=== PATIENT | female | born 1990 | race Caucasian/White ===

== ENCOUNTER 2022-04-12 12:12 | Observation (INO) | payer MEDICAID ==
[~2022-04-12] VITALS: Ht 163 cm; Wt 80.3 kg
[2022-04-12] MEDS ORDERED: PNV1TABL5 PO (12:56)
[2022-04-12 13:31] VITALS: BP 88/52
== END 2022-04-12 18:00 | disposition home or self-care (01) ==
LOC: MLD 12:12
PROVIDERS: ADMIT Obstetrics & Gynecology; ATTEND Obstetrics & Gynecology
DX: O36.8130 Decreased fetal movements, third trimester, not applicable or unspecified (principal); Z20.822 Contact with and (suspected) exposure to COVID-19; Z3A.37 37 weeks gestation of pregnancy
CPT/HCPCS: 59025; 76819; 81000; 87426; G0378; Q0092

== ENCOUNTER 2022-08-29 08:03 | Emergency (ER) | payer MEDICAID ==
[~2022-08-29] VITALS: Ht 152.4 cm; Wt 74.4 kg
[~2022-08-29 08:03] MED LIST: PNV1TABL5 PO
[2022-08-29 08:17] VITALS: BP 132/65
--- NOTE | 2022-08-29 08:45 | NUR ---
31F presents to ED with c/o vaginal bleeding since last night. Pt reports noting light pink discharge last night, states discharge is now a darker red with a dark, clot like, formations. Pt reports taking a test a week ago that resulted positive. Pt denies any pains, fevers, chills, vomiting or diarrhea. Pt reports feeling nausea daily but denies upon assessment.
[2022-08-29 09:08] LABS: BASOPHILS % (AUTO) 0.2 % (0.0-2.0); EOSINOPHILS # (AUTO) 0.2 K/uL (0-0.4); EOSINOPHILS % (AUTO) 2.2 % (0.0-4.0); HEMATOCRIT 38.7 % (36-48); HEMOGLOBIN 12.9 g/dL (12.0-16.0); LYMPHOCYTES # (AUTO) 2.1 K/uL (2.5-16.5); LYMPHOCYTES % (AUTO) 28.7 % (20.5-51.1); MEAN CORPUSCULAR HEMOGLOBIN 31 pg (27-31); MEAN CORPUSCULAR HGB CONC 33 g/dL (33-37); MEAN CORPUSCULAR VOLUME 91.4 fL (80-94); MONOCYTES # (AUTO) 0.3 K/uL (0.8-1.0); MONOCYTES % (AUTO) 4.5 % (1.7-9.3); NEUTROPHILS # (AUTO) 4.6 K/uL (1.8-7.7); NEUTROPHILS % (AUTO) 64.4 % (42.2-75.2); PLATELET COUNT (AUTO) 261 K/uL (140-450); RED BLOOD CELL COUNT(AUTO) 4.24 MIL/uL (4.20-5.40); WHITE BLOOD COUNT (AUTO) 7.2 K/uL (4.8-10.8)
[2022-08-29 10:04] LABS: APPEARANCE,URINE HAZY (CLEAR); BILIRUBIN,URINE NEGATIVE (NEGATIVE); BLOOD, URINE 3+ (NEGATIVE); COLOR,URINE ORANGE (YELLOW); LEUKOCYTE ESTERASE ,URINE 1+ (NEGATIVE); NITRITE, URINE NEGATIVE (NEGATIVE); UGLUCOSE NEGATIVE (NEGATIVE)
[2022-08-29 10:15] LABS: RBC,URINE 11-20 (MOD) /HPF (0-5)
[2022-08-29 10:16] LABS: WBC,URINE 20-60 /HPF (0-5)
[2022-08-29 10:17] LABS: URINE AMORPHOUS URATE 1+ /HPF (None Seen)
[2022-08-29] MEDS ORDERED: CEPH-588 PO (10:30)
[2022-08-29 10:38] VITALS: BP 95/63
== END 2022-08-29 10:38 | disposition home or self-care (01) ==
LOC: MED 08:03
DX: O03.9 Complete or unspecified spontaneous abortion without complication (principal); Z88.1 Allergy status to other antibiotic agents; Z88.2 Allergy status to sulfonamides; Z79.899 Other long term (current) drug therapy
CPT/HCPCS: 36415; 76817; 81001; 81025; 84702; 85025; 86900; 86901; 87086; 99284; Q0092

== ENCOUNTER 2022-09-15 22:57 | Emergency (ER) | payer MEDICAID ==
[~2022-09-15] VITALS: Ht 165.1 cm; Wt 73.5 kg
[~2022-09-15 22:57] MED LIST changes: +CEPH-588 PO
[2022-09-15 23:20] VITALS: BP 108/53
--- NOTE | 2022-09-15 23:21 | NUR ---
Patient taken to bed 11.
--- NOTE | 2022-09-15 23:22 | NUR ---
PT TAKEN TO BED 11
--- NOTE | 2022-09-16 00:10 | NUR ---
ER physician at bedside assessing patient.
[2022-09-16] MEDS ORDERED: KETOROLAC 30 MG/ML VIAL IM ONE (00:45)
[2022-09-16] MEDS ORDERED: NAPR-54 PO (01:48)
[2022-09-16 02:03] VITALS: BP 100/68
--- NOTE | 2022-09-16 02:17 | NUR ---
Patient discharged with v/s stable. Written and verbal after care instructions given and explained. Patient verbalized understanding. Pt discharged with new orders for naproxen. Ambulatory with steady gait. All questions addressed prior to discharge. Advised to follow up with PMD.
== END 2022-09-16 02:17 | disposition home or self-care (01) ==
LOC: MED 22:57
DX: R07.89 Other chest pain (principal); Z79.899 Other long term (current) drug therapy; Z88.2 Allergy status to sulfonamides; Z88.1 Allergy status to other antibiotic agents
CPT/HCPCS: 71045; 96372; 99283; J1885; Q0092

== ENCOUNTER 2023-11-10 14:57 | Inpatient (IN) | payer MEDICAID, OTHER ==
[~2023-11-10] VITALS: Ht 163 cm; Wt 83.5 kg
[~2023-11-10 14:57] MED LIST changes: +NAPR-54 PO
[2023-11-10] MEDS ORDERED: LACTATED RINGERS 500 ML IV SCH (15:40)
[2023-11-10] MEDS ORDERED: CARBOPROST 250 MCG/ML AMP IM PRN (15:40)
[2023-11-10] MEDS ORDERED: METHYLERGONOVINE 0.2 MG/ML AMP IM PRN (15:40)
[2023-11-10] MEDS: LACTATED RINGERS 1,000 ML IV SCH (16:03)
[2023-11-10] MEDS ORDERED: PRETAB PO (16:35)
[2023-11-10 16:46] LABS: BASOPHILS % (AUTO) 0.5 % (0.0-2.0); EOSINOPHILS # (AUTO) 0.2 K/uL (0-0.4); EOSINOPHILS % (AUTO) 1.9 % (0.0-4.0); HEMATOCRIT 28.2 % (36-48); HEMOGLOBIN 9.6 g/dL (12.0-16.0); LYMPHOCYTES # (AUTO) 1.5 K/uL (2.5-16.5); LYMPHOCYTES % (AUTO) 16.2 % (20.5-51.1); MEAN CORPUSCULAR HEMOGLOBIN 28 pg (27-31); MEAN CORPUSCULAR HGB CONC 34 g/dL (33-37); MEAN CORPUSCULAR VOLUME 81.8 fL (80-94); MONOCYTES # (AUTO) 0.4 K/uL (0.8-1.0); MONOCYTES % (AUTO) 4.7 % (1.7-9.3); NEUTROPHILS % (AUTO) 76.7 % (42.2-75.2); PLATELET COUNT (AUTO) 213 K/uL (140-450); RED BLOOD CELL COUNT(AUTO) 3.44 MIL/uL (4.20-5.40); RED CELL DISTRIBUTION WIDTH 14.1 % (11.6-13.7); WHITE BLOOD COUNT (AUTO) 9.1 K/uL (4.8-10.8)
[2023-11-10 16:56] LABS: APPEARANCE,URINE CLEAR (CLEAR); BILIRUBIN,URINE NEGATIVE (NEGATIVE); BLOOD, URINE NEGATIVE (NEGATIVE); COLOR,URINE YELLOW (YELLOW); LEUKOCYTE ESTERASE ,URINE TRACE (NEGATIVE); NITRITE, URINE NEGATIVE (NEGATIVE); PROTEIN,URINE NEGATIVE (NEGATIVE); UGLUCOSE NEGATIVE (NEGATIVE); UROBILINOGEN,URINE 0.2 EU/dL (0.2 - 1)
[2023-11-10 17:06] LABS: BACTERIA,URINE FEW /HPF (None Seen); RBC,URINE 0-5 /HPF (0-5); SQUAMOUS EPITHELIAL CELL,UR 0-3 (FEW) /LPF (0-3 (FEW)); WBC,URINE 0-5 /HPF (0-5)
[2023-11-10 17:14] LABS: INR 0.88 (0.8-1.2); PARTIAL THROMBOPLASTIN TIME 25.1 secs (22-35.6); PROTHROMBIN TIME 9.3 secs (10.8-13.4)
[2023-11-10 17:22] LABS: ALBUMIN 2.4 g/dL (3.4-5.0); ANION GAP 9.9 (8-16); CALCIUM 8.7 mg/dL (8.5-10.1); CREATININE 0.5 mg/dL (0.6-1.3); POTASSIUM 3.9 mmol/L (3.5-5.1); TOTAL BILIRUBIN 0.4 mg/dL (0.0-1.0); TOTAL PROTEIN, SERUM 7.7 g/dL (6.4-8.2)
[2023-11-11] MEDS ORDERED: OXYTOCIN/0.9 % SODIUM CHLORIDE 500 ML IV SCH (01:05)
[2023-11-11] MEDS ORDERED: MORPHINE SULFATE 10 MG/ML VIAL IVP PRN (06:45)
[2023-11-11] MEDS ORDERED: ONDANSETRON 4 MG/2 ML VIAL IVP PRN (06:45)
== END 2023-11-11 08:45 | disposition home or self-care (01) | DRG 566 ==
LOC: MLD 14:57 → OBSVTOIN 15:39
PROVIDERS: ADMIT Obstetrics & Gynecology; ATTEND Obstetrics & Gynecology
DX: O47.1 False labor at or after 37 completed weeks of gestation (principal); Z20.822 Contact with and (suspected) exposure to COVID-19; Z3A.38 38 weeks gestation of pregnancy
CPT/HCPCS: 36415; 76805; 76819; 80053; 81001; 85025; 85610; 85730; 86592; 86886; 86900; 86901; Q0092

== ENCOUNTER 2023-11-15 20:01 | Inpatient (IN) | payer OTHER ==
[~2023-11-15] VITALS: Ht 163 cm; Wt 83.5 kg
[~2023-11-15 20:01] MED LIST changes: -CEPH-588 PO; -NAPR-54 PO; -PNV1TABL5 PO; +PRETAB PO
[2023-11-15 20:22] VITALS: BP 113/56; PULSE 90; RESP 18; TEMP 99.2
[2023-11-15] MEDS ORDERED: LACTATED RINGERS 500 ML IV ONE (20:30)
[2023-11-15] MEDS ORDERED: METHYLERGONOVINE 0.2 MG/ML AMP IM PRN (20:30)
[2023-11-15 20:51] LABS: BASOPHILS % (AUTO) 0.4 % (0.0-2.0); EOSINOPHILS # (AUTO) 0.2 K/uL (0-0.4); EOSINOPHILS % (AUTO) 1.9 % (0.0-4.0); HEMATOCRIT 29.1 % (36-48); HEMOGLOBIN 9.6 g/dL (12.0-16.0); LYMPHOCYTES # (AUTO) 1.5 K/uL (2.5-16.5); LYMPHOCYTES % (AUTO) 15.1 % (20.5-51.1); MEAN CORPUSCULAR HEMOGLOBIN 27 pg (27-31); MEAN CORPUSCULAR HGB CONC 33 g/dL (33-37); MEAN CORPUSCULAR VOLUME 82.5 fL (80-94); MONOCYTES # (AUTO) 0.4 K/uL (0.8-1.0); MONOCYTES % (AUTO) 4.5 % (1.7-9.3); NEUTROPHILS # (AUTO) 7.7 K/uL (1.8-7.7); NEUTROPHILS % (AUTO) 78.1 % (42.2-75.2); PLATELET COUNT (AUTO) 208 K/uL (140-450); RED BLOOD CELL COUNT(AUTO) 3.53 MIL/uL (4.20-5.40); RED CELL DISTRIBUTION WIDTH 14.6 % (11.6-13.7); WHITE BLOOD COUNT (AUTO) 9.9 K/uL (4.8-10.8)
[2023-11-15 21:03] LABS: APPEARANCE,URINE CLEAR (CLEAR); BILIRUBIN,URINE NEGATIVE (NEGATIVE); BLOOD, URINE TRACE-I (NEGATIVE); COLOR,URINE YELLOW (YELLOW); LEUKOCYTE ESTERASE ,URINE TRACE (NEGATIVE); NITRITE, URINE NEGATIVE (NEGATIVE); PH,URINE 6.5 (5.0-9.0); PROTEIN,URINE NEGATIVE (NEGATIVE); UGLUCOSE NEGATIVE (NEGATIVE); UROBILINOGEN,URINE 0.2 EU/dL (0.2 - 1)
[2023-11-15 21:05] LABS: RBC,URINE 0-5 /HPF (0-5); WBC,URINE 0-5 /HPF (0-5)
[2023-11-15 21:06] LABS: BACTERIA,URINE 0-2 /HPF (None Seen); MUCUS,URINE None Seen /LPF (None Seen); SQUAMOUS EPITHELIAL CELL,UR 0-3 (FEW) /LPF (0-3 (FEW))
[2023-11-15 21:11] LABS: ALBUMIN 2.5 g/dL (3.4-5.0); ANION GAP 14.3 (8-16); CALCIUM 8.8 mg/dL (8.5-10.1); CREATININE 0.6 mg/dL (0.6-1.3); POTASSIUM 4.3 mmol/L (3.5-5.1); TOTAL BILIRUBIN 0.4 mg/dL (0.0-1.0)
[2023-11-15] MEDS: LACTATED RINGERS 1,000 ML IV SCH (21:42)
[2023-11-15] MEDS ORDERED: ROPIVACAINE 0.2%/NS PREMIX 200 ML EPI ONE (22:47)
[2023-11-15] MEDS: OXYTOCIN/0.9 % SODIUM CHLORIDE 500 ML IV ONE (23:20)
[2023-11-15] MEDS ORDERED: OXYTOCIN/0.9 % SODIUM CHLORIDE 500 ML IV SCH (23:35)
[2023-11-16] MEDS ORDERED: METHYLERGONOVINE 0.2 MG TAB PO PRN (01:50)
[2023-11-16] MEDS ORDERED: MAGNESIUM (01:50)
[2023-11-16] MEDS ORDERED: IBUPROFEN 800 MG TAB PO PRN ×3 (01:50→09:33)
[2023-11-16] MEDS ORDERED: OXYTOCIN 10 UNITS/ML VIAL IM PRN (01:50)
[2023-11-16] MEDS ORDERED: BENZOCAINE/MENTHOL 20%-0.5% 60 GM CAN TP PRN (01:50)
[2023-11-16] MEDS ORDERED: DOCU-474 PO (01:50)
[2023-11-16] MEDS ORDERED: METHYLERGONOVINE 0.2 MG/ML AMP IM PRN (01:50)
[2023-11-16] MEDS ORDERED: bisacodyL 10 MG SUPP RC PRN (01:55)
[2023-11-16 05:11] LABS: HEMATOCRIT 25.4 % (36-48); HEMOGLOBIN 8.5 g/dL (12.0-16.0)
[2023-11-16] MEDS: IBUPROFEN 800 MG TAB PO PRN (06:26)
[2023-11-16] MEDS: oxyCODONE/APAP 5/325 MG 1 TAB TAB PO PRN (09:46)
[2023-11-16] MEDS ORDERED: MEDS-TO-BEDS MC SCH (21:00)
[2023-11-17] MEDS: oxyCODONE/APAP 5/325 MG 1 TAB TAB PO PRN (05:07)
[2023-11-17] MEDS ORDERED: IBUP-2217 PO (08:18)
[2023-11-17] MEDS: DOCUSATE SOD/SENNA 50/8.6 MG 1 TAB PO PRN (08:54)
== END 2023-11-17 17:15 | disposition home or self-care (01) | DRG 560 ==
LOC: MLD 20:01 → MFCC 11-16 03:40
PROVIDERS: ADMIT Obstetrics & Gynecology; ATTEND Obstetrics & Gynecology
PROC: 10E0XZZ Delivery of Products of Conception, External Approach (ICD-10-PCS; principal; 2023-11-16)
PROC: 0KQM0ZZ Repair Perineum Muscle, Open Approach (ICD-10-PCS; 2023-11-16)
PROC: 3E0R3BZ Introduction of Anesthetic Agent into Spinal Canal, Percutaneous Approach (ICD-10-PCS; 2023-11-16)
PROC: 00HU33Z Insertion of Infusion Device into Spinal Canal, Percutaneous Approach (ICD-10-PCS; 2023-11-16)
DX: O70.1 Second degree perineal laceration during delivery (principal); Z37.0 Single live birth; R71.0 Precipitous drop in hematocrit; Z20.822 Contact with and (suspected) exposure to COVID-19; Z3A.39 39 weeks gestation of pregnancy
CPT/HCPCS: 36415; 59409; 80053; 81001; 85018; 85025; 86592; 86886; 86900; 86901; 90715; J2590; J2795